=== PATIENT | female | born 1975 | race Caucasian/White ===

== ENCOUNTER 2017-02-04 17:04 | Emergency (ER) | payer OTHER ==
--- NOTE | ~2017-02-04 | CT4 ---
[facility] A Service of [facility] RADIOLOGY TEXT RESULTS PATIENT: MARV COFFMAN LOCATION: SED : 73 UNIT #: [id number] AGE: [address]: HERO WEISS SEX: F ORDER DR: [id number] [address] [address] [id number] E MR#: [id number] Acc #: [id number] NAME: MARV COFFMAN. : 1975 SEX: F STUDY DATE/TIME: 02/04/2017 16:28 UNIT: SED ROOM: STUDY DESCRIPTION: CT Abd and Pelv Wo Cont Attending Physician: Hero Weiss Ordering Physician: Physician Non-Staff Primary Care Physician: [facility] MEDICAL IMAGING REPORT This report is preliminary unless electronic signature is present. EXAM CT of the abdomen and pelvis without contrast media HISTORY Right-sided abdominal pain for 5 days, nausea. TECHNIQUE Transaxial imaging of the abdomen and pelvis was performed without contrast media. This CT examination was performed with one or more of the following radiation dose reduction techniques: automatic exposure control, adjustment of mA and/or kV according to patient size, and iterative reconstruction. FINDINGS There is underlying fibrosis in both lung bases, particularly in the right middle lobe. Scans through the liver parenchyma are normal. The gallbladder is absent. Spleen is normal. There is a small hiatal hernia. Pancreas is normal. There is a hypodense left adrenal mass measuring 2.7 x 2.4 cm. It has an overall density of -15 Hounsfield units and is consistent with a benign adrenal adenoma. The right adrenal is normal. The left kidney is normal. There is some mild edema surrounding the right kidney. The borders of the kidney are less well defined. The patient does not have hydronephrosis. The ureter is not dilated. The appendix is normal. No dilated or thickened loops of bowel are present. Uterus is unremarkable. There is a right adnexal cyst measuring 2.2 cm. There is trace free fluid in the cul-de-sac. The patient has had bilateral tubal ligations. CONCLUSION 1. Perinephric edema on the right. The kidney itself appears relatively swollen. There is no hydronephrosis and no evidence of stone. This raises the question of pyelonephritis. Correlate clinically. [facility] A Service of [facility] RADIOLOGY TEXT RESULTS PATIENT: MARV COFFMAN [place] [facility] [place] 73 [place] #: [id number] AGE: [address]: HREO WEISS SEX: F ORDER DR: 2. 2.4 x 2.7 cm sharply defined low-density left adrenal mass likely a benign adrenal adenoma given its density. 3. Status post cholecystectomy. 4. Small hiatal hernia. 5. Right adnexal cyst measuring 2.2 cm. 6. Trace fluid in the cul-de-sac which can be seen physiologically. 7. Underlying fibrosis in the lung bases. Dictated by... Chiki Vences M.D. THIS IS AN ELECTRONICALLY VERIFIED REPORT Chiki Vences M.D. at 02/08/2017 5:10 PM GIULIANA/francine TD: 02/05/2017 07:02 JOB #: [id number] MEDICAL IMAGING REPORT Page 1 of 1
[2017-02-04 16:37] LABS: BASOPHIL% 0.3 % (0-2.5); DIFF IND NO; EOSINOPHIL% 0.2 % (0.0-7.0); HEMATOCRIT 43.6 % (35.0-45.0); HEMOGLOBIN 14.6 gm/dL (12.0-16.0); LYMPHOCYTE% 13.3 % (17.0-45.0); MEAN CELL VOLUME 85.6 FL (83-96); MEAN CORPUSCULAR HEMOGLOBIN 28.7 PG (28-34); MEAN CORPUSCULAR HGB CONC 33.6 g/dL (30-36); MEAN PLATELET VOLUME 8.2 FL (6.5-11.5); MONOCYTE# 0.7 X10e3 (0-1.0); MONOCYTE% 9.1 % (3.0-12.0); NEUTROPHIL% 77.1 % (40-75); PLATELET COUNT 194 X10e3 (140-420); RED BLOOD COUNT 5.09 X10e (3.90-5.30); WHITE BLOOD COUNT 7.8 X10e3 (4.0-10.5)
[2017-02-04 16:56] LABS: ALBUMIN SERUM 3.5 g/dL (3.5-5.0); ALKALINE PHOSPHATASE 99 U/L (32-92); ALT (SGPT) 27 U/L (10-40); AST (SGOT) 23 U/L (10-42); BILIRUBIN, DIRECT 0.1 mg/dL (0.0-0.2); BILIRUBIN,INDIRECT 0.3 mg/dL (0.0-0.9); BILIRUBIN,TOTAL 0.4 mg/dL (0.2-2.0); BLOOD UREA NITROGEN 7 mg/dL (9-23); CALCIUM SERUM 8.5 mg/dL (8.4-10.2); CARBON DIOXIDE 25 mmol/L (22-31); CHLORIDE 97 mmol/L (100-111); CREATININE SERUM 0.7 mg/dL (0.6-1.4); GLOM FILT RATE Estimated ABOVE60 mL/min (>60); GLUCOSE FASTING 102 mg/dL (70-110); LIPASE 28 U/L (22-51); POTASSIUM 3.1 mmol/L (3.5-5.1); PROTEIN TOTAL SERUM 7.6 g/dL (6.0-8.3); SODIUM 132 mmol/L (135-145)
[2017-02-04 17:03] LABS: URINE APPEARANCE SL CLOUDY; URINE BILIRUBIN NEG (NEG); URINE BLOOD 3+ (NEG); URINE COLOR YELLOW; URINE GLUCOSE NEG (NORM); URINE KETONE NEG (NEG); URINE LEUKOCYTE ESTERASE 1+ (NEG); URINE NITRATE POS (NEG); URINE PROTEIN 1+ (NEG); URINE SOURCE CLEAN CATCH
[~2017-02-04 17:04] MED LIST: ALBUTEROL17 GM INH; ALPRAZOLAM PO; ATARAX PO; BENADRYL PO; FLEXERIL10 MG PO; KEFLEX PO; LORTAB 5/500 TA1 TA1 PO; MEDROL PO; MOBIC PO; MOTRIN600 M2 PO; NAPROSYN500 MG PO; PREDNISONE PO; PRILOSEC PO; PRILOSEC20 MG PO; ROBAXIN PO; ROBAXIN500 MG PO; SINGULAIR PO; TYLENOL #3 PO; VICODIN; ZANTAC PO; ZITHROMAX
[2017-02-04 17:14] LABS: AMPHETAMINE POS (NEG); BARBITURATES NEG (NEG); BENZODIAZEPINES NEG (NEG); COCAINE NEG (NEG); MARIJUANA NEG (NEG); OPIATES NEG (NEG); TRICYCLIC ANTIDEPRESSANTS NEG (NEG); U METHADONE NEG (NEG)
[2017-02-04 17:43] LABS: MICRO INDICATED? YES
[2017-02-04 17:50] LABS: CULTURE INDICATED? YES; URINE BACTERIA 1+ (NEG); URINE SQUAMOUS EPITHELIAL CELL MODERATE /[HPF]; URINE WBC 25-50 /[HPF] (0-5)
== END 2017-02-04 18:04 | disposition home or self-care (01) ==
LOC: SED 17:04
PROVIDERS: Physician Assistant
DX: N10 Acute pyelonephritis (principal); K21.9 Gastro-esophageal reflux disease without esophagitis; F17.210 Nicotine dependence, cigarettes, uncomplicated; Z79.899 Other long term (current) drug therapy; Z88.1 Allergy status to other antibiotic agents
CPT/HCPCS: 36415; 74176; 80048; 80076; 80307; 81003; 83690; 84703; 85025; 87086; 87088; 87186; 96374; 96375; 99284; J0696; J1885; J2405

== ENCOUNTER 2017-06-02 19:39 | Emergency (ER) | payer OTHER ==
--- NOTE | ~2017-06-02 | US85 ---
[facility] A Service of [facility] RADIOLOGY TEXT RESULTS PATIENT: MARV COFFMAN LOCATION: SED : 73 UNIT #: [id number] AGE: [address]: Toya Patten SEX: F ORDER DR: [id number] [address] [address] [id number] E MR#: [id number] Acc #: [id number] NAME: MARV COFFMAN : 1975 SEX: F STUDY DATE/TIME: 06/02/2017 21:31 UNIT: SED ROOM: STUDY DESCRIPTION: [employer] Attending Physician: Toya Patten Pa-C Ordering Physician: Toya Patten Pa-C Primary Care Physician: [facility] MEDICAL IMAGING REPORT This report is preliminary unless electronic signature is present. EXAM Right lower extremity venous duplex, 06/02/2017 HISTORY Right posterior calf pain for 3 hours today. Patient says she felt a snap in leg while walking. Evaluate for deep vein thrombosis. FINDINGS Watt-scale images of the right lower extremity were obtained as well as Doppler waveform, spectral analysis and color flow Doppler imaging. There is normal blood flow and compressibility in the right common femoral vein, deep femoral vein, superficial femoral vein and popliteal vein. Normal blood flow and compressibility is seen in the right calf veins. There is a 1.7 cm x 8 mm x 1.8 cm fluid collection in the right popliteal fossa probably representing a Walker's cyst. IMPRESSION 1. No evidence of deep vein thrombosis within the right lower extremity. 2. A 1.8 cm fluid collection in the posterior right calf medially probably representing a Walker's cyst. Dictated by... Karel Krueger M.D. THIS IS AN ELECTRONICALLY VERIFIED REPORT Karel Krueger M.D. at 06/03/2017 2:27 PM KRT/jo ann TD: 06/02/2017 22:51 [facility] A Service of [facility] RADIOLOGY TEXT RESULTS PATIENT: MARV COFFMAN [place] [facility] [place] 73 [place]IT #: [id number] AGE: [address]: Toya Patten PAC SEX: F ORDER DR: TASHI #: [id number] MEDICAL IMAGING REPORT Page 1 of 1
[2017-06-02] MEDS ORDERED: PRILOSEC PO (19:59)
[2017-06-02] MEDS ORDERED: XANAX0.5 M1 PO (19:59)
== END 2017-06-02 22:43 | disposition home or self-care (01) ==
LOC: SED 19:39
DX: S86.011A Strain of right Achilles tendon, initial encounter (principal); X50.9XXA Other and unspecified overexertion or strenuous movements or postures, initial encounter; Y92.009 Unspecified place in unspecified non-institutional (private) residence as the place of occurrence of the external cause
CPT/HCPCS: 29515; 93971; 96372; 99283; J1885